=== PATIENT | female | born 1990 | race Asian ===

== ENCOUNTER 2021-10-29 17:47 | Inpatient (IN) ==
[2021-10-29] MEDS ORDERED: Lactated Ringers 1000 ml BAG 1,000 ML IV ONE (19:15)
[2021-10-29] MEDS ORDERED: Ondansetron 4 mg VIAL 2 MG/ML 2 ml VIAL IV ONE (20:04)
[2021-10-29 20:18] LABS: ABS Basophils 0.1 10^3/ul (0-0.2); ABS Lymphocytes 2.6 10^3/ul (1.0-4.8); ABS Monocytes 1.4 10^3/ul (0-0.8); ABS Neutrophils 12.3 10^3/ul (1.5-7.7); Eosinophil % 0.1 %; Hematocrit 39 % (35-47); Hemoglobin 12.6 g/dL (12.0-16.0); Lymphocyte % 15.6 %; Mean Corpuscular HGB Conc 33 g/dL (31-36); Mean Corpuscular Hemoglobin 28 pg (27-31); Mean Corpuscular Volume 85 fL (80-97); Mean Platelet Volume 8.8 fL (7.4-10.4); Platelet Count 304 10^3/uL (150-450); Red Blood Count 4.57 10^6 /uL (3.70-4.87); Red Cell Distribution Width 15 % (10-15); White Blood Count 16.3 10^3/uL (3.5-10.8)
[2021-10-29 20:34] LABS: Activated Partial Thrombo Time 29.9 seconds (26.0-38.0); Albumin 4.1 g/dL (3.2-5.2); C Reactive Protein 165.24 mg/L (<8.01); Calcium 9.3 mg/dL (8.6-10.3); Globulin 4.3 g/dL (2-4); INR 1.19 (0.86-1.15); Potassium 3.7 mmol/L (3.5-5.0); Total Bilirubin 0.7 mg/dL (0.2-1.0); Total Protein 8.4 g/dL (6.4-8.9); eGFR CKD-EPI 96.4 (>60)
[2021-10-29 20:36] LABS: Troponin I 0.02 ng/mL (<0.03)
[2021-10-29 20:40] LABS: Influenza A Molecular Negative (Negative); Influenza B Molecular Negative (Negative)
[2021-10-29] MEDS ORDERED: Iohexol 300 (CONTRAST) 10 ML SDV IV ONE (20:40)
[2021-10-29 21:37] LABS: Urine Appearance Cloudy; Urine Color Yellow; Urine Ketones Negative (Negative); Urine Protein 1+(30 mg/dL) (Negative); Urine Specific Gravity 1.025 (1.002-1.030); Urine Urobilinogen Negative (Negative); Urine pH 5 (5-9)
[2021-10-29 21:38] LABS: Urine Bilirubin Negative (Negative); Urine Blood 2+ (Negative); Urine Glucose Negative (Negative); Urine Nitrite Negative (Negative)
[2021-10-29 21:50] LABS: Urine Bacteria 1+ (Absent); Urine Red Blood Cell 3+(>10/hpf) (Absent); Urine Squamous Epithelial Cell Present (Absent); Urine White Blood Cell 3+(>20/hpf) (Absent)
[2021-10-29] MEDS ORDERED: cefTRIAXone 1 gm/50 mL NS BAG 1 GM/50 ML BAG IV ONE (21:53)
[2021-10-29] MEDS ORDERED: Piperacillin/Tazobac ADVAN 3.375 GM in NS 0.9% 100 ml BAG 100 ML IV ONE (23:23)
[2021-10-29] MEDS ORDERED: Lactated Ringers 1000 ml BAG 1,000 ML IV SCH (23:45)
[2021-10-29] MEDS ORDERED: Zosyn per Pharmacy NOTE FOLLOW UP SCH ×2 (23:45)
[2021-10-30] MEDS: Enoxaparin 40 MG/0.4 ML SYR SUBCUT SCH ×2 (01:45→21:18)
[2021-10-30 04:57] LABS: ABS Lymphocytes 1.7 10^3/ul (1.0-4.8); ABS Monocytes 1.4 10^3/ul (0-0.8); ABS Neutrophils 9.4 10^3/ul (1.5-7.7); Eosinophil % 0.3 %; Hematocrit 32 % (35-47); Hemoglobin 10.8 g/dL (12.0-16.0); Lymphocyte % 13.5 %; Mean Corpuscular HGB Conc 34 g/dL (31-36); Mean Corpuscular Hemoglobin 28 pg (27-31); Mean Corpuscular Volume 84 fL (80-97); Mean Platelet Volume 8.2 fL (7.4-10.4); Nucleated Red Blood Cells % 0.1; Platelet Count 268 10^3/uL (150-450); Red Blood Count 3.86 10^6 /uL (3.70-4.87); Red Cell Distribution Width 15 % (10-15); White Blood Count 12.6 10^3/uL (3.5-10.8)
[2021-10-30 05:12] LABS: Calcium 8.5 mg/dL (8.6-10.3); Potassium 3.4 mmol/L (3.5-5.0); eGFR CKD-EPI 100.7 (>60)
[2021-10-30] MEDS: ZOSYN 3.375 GM Q8H per EXTENDED INFUSION IV SCH ×2 (05:51→13:46)
[2021-10-30] MEDS ORDERED: Potassium Chlor 20 meq TAB.ER PO ONE (05:55)
[2021-10-30 06:06] LABS: Hepatitis B Surface Antigen Nonreactive (Nonreactive)
[2021-10-30 06:11] LABS: Hepatitis A Ab IgM Negative (Negative)
[2021-10-30 06:12] LABS: Hepatitis B Core IgM Nonreactive (Nonreactive)
[2021-10-30 06:24] LABS: Hepatitis C Antibody Negative (Negative)
[2021-10-30] MEDS ORDERED: Morphine 2 MG/ML SYRINGE IV PRN (15:33)
[2021-10-30] MEDS ORDERED: cefTRIAXone 1 gm/50 mL NS BAG 1 GM/50 ML BAG IVPB SCH (23:00)
[2021-10-31 06:36] LABS: Hematocrit 37 % (35-47); Mean Corpuscular HGB Conc 33 g/dL (31-36); Mean Corpuscular Hemoglobin 28 pg (27-31); Mean Corpuscular Volume 87 fL (80-97); Red Blood Count 4.24 10^6 /uL (3.70-4.87); Red Cell Distribution Width 15 % (10-15); White Blood Count 9.3 10^3/uL (3.5-10.8)
[2021-10-31 06:37] LABS: ABS Eosinophils 0.1 10^3/ul (0-0.6); ABS Lymphocytes 2.8 10^3/ul (1.0-4.8); ABS Monocytes 0.9 10^3/ul (0-0.8); ABS Neutrophils 5.5 10^3/ul (1.5-7.7); Eosinophil % 1.5 %; Lymphocyte % 29.6 %
[2021-10-31 06:50] LABS: Calcium 8.7 mg/dL (8.6-10.3); Potassium 4.2 mmol/L (3.5-5.0)
[2021-10-31 09:43] VITALS: BP 103/75
[2021-11-01 13:42] LABS: EBV Capsid Ag IgG Ab Positive (Negative); EBV Capsid Ag IgM Ab Negative (Negative); Epstein-Barr Nuclear Antigen Positive (Negative)
== END 2021-10-31 11:00 | disposition home or self-care (01) | DRG 872 ==
LOC: ED 17:47 → EDHOLD 23:18 → SUATTDRO 23:18 → MEDTELE 10-30 01:33
PROVIDERS: ADMIT Internal Medicine; ATTEND Hospitalist